=== PATIENT | female | born 1990 | race Hispanic/Latino ===

== ENCOUNTER → 2020-08-08 | Outpatient (CLI) | payer OTHER | LOC: RAD 14:27 | PROVIDERS: ATTEND Internal Medicine | DX: R07.2 Precordial pain (principal) | CPT/HCPCS: 71046 ==

== ENCOUNTER → 2020-12-25 | Outpatient (CLI) | payer OTHER | LOC: CT 11:35 | PROVIDERS: ATTEND Internal Medicine | DX: R51.9 Headache, unspecified (principal) | CPT/HCPCS: 70450 ==

== ENCOUNTER → 2022-05-17 | Outpatient (CLI) | payer MEDICARE | LOC: MRI 08:39 | PROVIDERS: ATTEND Internal Medicine | DX: G31.9 Degenerative disease of nervous system, unspecified (principal) | CPT/HCPCS: 70551 ==